=== PATIENT | female | born 1975 | race Caucasian/White ===

== ENCOUNTER → 2019-12-31 16:08 | Outpatient (BNVA) | payer OTHER, SELFPAY | PROVIDERS: Family Provider Nurse Practitioner; PCP Nurse Practitioner; Visit Provider Nurse Practitioner Women's Health | DX: E03.9 Hypothyroidism, unspecified (principal) | CPT/HCPCS: 84443 ==

== ENCOUNTER 2020-07-18 13:09 | Outpatient (CLI) | payer OTHER, SELFPAY ==
--- NOTE | 2020-07-18 13:30 | MM_ITS ---
WS: [id number] BILATERAL DIGITAL SCREENING MAMMOGRAM WITH CAD CLINICAL INFORMATION: screening HISTORY: Screening mammogram. No current complaints. COMPARISON: None. TECHNIQUE: Bilateral CC and MLO. FINDINGS: The breast are composed of extremely dense tissue, which can limit the detection of small underlying mass lesions. No suspicious focal mass, asymmetry, calcifications, or architectural distortion. No ev idence of malignancy. Vascular calcification. MM/[place] [id number] IMPRESSION: BI-RADS: 2-Benign FOLLOW UP: 1 Month Follow-up Recommend return to annual screening mammography.
== END 2020-07-18 13:10 | disposition home or self-care (01) ==
LOC: RADSHAW 13:12
PROVIDERS: PCP Nurse Practitioner; Visit Provider Nurse Practitioner Women's Health
DX: Z12.31 Encounter for screening mammogram for malignant neoplasm of breast (principal)
CPT/HCPCS: 77067

== ENCOUNTER → 2021-06-09 16:09 | Outpatient (BNVA) | payer OTHER, SELFPAY | PROVIDERS: PCP Registered Nurse; Visit Provider Nurse Practitioner Women's Health | DX: Z01.419 Encounter for gynecological examination (general) (routine) without abnormal findings (principal); N93.9 Abnormal uterine and vaginal bleeding, unspecified; E03.9 Hypothyroidism, unspecified; Z12.39 Encounter for other screening for malignant neoplasm of breast | CPT/HCPCS: 84443 ==

== ENCOUNTER 2021-08-07 15:10 | Outpatient (CLI) | payer OTHER, SELFPAY ==
--- NOTE | 2021-08-07 15:30 | MM_ITS ---
WS: [email or web address] SCREENING DIGITAL MAMMOGRAM WITH CAD HISTORY: Z12.39 - Encounter for other screening for malignant neoplasm. COMPARISON: 07/18/2020 Bilateral CC and MLO views submitted. Computer aided detection analyzed. Breast composition: The breasts are heterogeneously dense, which may obscure small masses. Small circ umscribed 5 mm nodule in the central LEFT breast seen only on the CC projection. This is superimposed over dense fibroglandular tissue otherwise. Not definitely visualized on the prior study. MM/[place] [id number] IMPRESSION: BI-RADS: 0-Incomplete: Need additional imaging evaluation FOLLOW UP: Need Additional Imaging LEFT breast: Spot compression views (CC and MLO). True ML. Ultrasound to follow if abnormality persists.
== END 2021-08-07 15:11 | disposition home or self-care (01) ==
LOC: RADSHAW 15:15
PROVIDERS: PCP Registered Nurse; Visit Provider Nurse Practitioner Women's Health
DX: Z12.31 Encounter for screening mammogram for malignant neoplasm of breast (principal)
CPT/HCPCS: 77067

== ENCOUNTER 2021-09-21 07:43 | Outpatient (CLI) | payer OTHER, SELFPAY ==
--- NOTE | 2021-09-21 07:47 | US_ITS ---
WS: [email or web address] Exam: US breast LT limited* [id number] Date/Time of Exam: 09/21/2021 8:28 AM Reason For Exam: ABNORMAL MAMMOGRAM Regional ultrasound of the 12:00 position of the left breast is performed. There are 2 small cysts at the 12:00 position. The largest cyst measures 5.9 mm at greatest diameter and the smaller cyst 5.5 m m. These cysts correspond to the abnormality identified on recent screening mammogram and compression spot views. No suspicious solid mass or nodule is noted in this region. Recommendations: Continue yearly screening mammography. US/US breast LT limited* [id number] IMPRESSION: 1. 2 subcentimeter cysts are seen at the 12:00 position in the left breast and correspond to the abnormality identified on recent screening mammogram and comp ression spot views of the left breast. No suspicious solid mass or nodule is de monstrated in this area with ultrasound. BI-RADS Category 2.
--- NOTE | 2021-09-21 08:00 | MM_ITS ---
WS: [email or web address] Exam: [place] [id number] Date/Time of Exam: 09/21/2021 8:02 AM Reason For Exam: R92.8 - Other abnormal and inconclusive findings on diagn... VIEWS: Spot compression views of the left breast are obtained in the craniocaudal and mediolateral pr ojections. A straight 90 degree lateral view of the left breast was also included in the series.. Comparison made with prior exam of 08/07/2021 which is a screening mammogram. Findings: Partially obscured 5 mm nodule seen at about the 12:30 position in the left breast persists on the co mpression spot images. There was no sign of suspicious calcification or architectural distortion. Th e left breast is heterogeneously dense MM/[place] [id number] Impression: BI-RADS: 0-Incomplete: Need additional imaging evaluation regional ultrasound r ecommended for further workup. FOLLOW-UP: Need Additional Imaging This mammogram was also analyzed by the Computer Aided Detection System R2 Imag e Composite Laminator.
== END 2021-09-21 07:44 | disposition home or self-care (01) ==
PROVIDERS: PCP Registered Nurse; Visit Provider Nurse Practitioner Women's Health
DX: R92.8 Other abnormal and inconclusive findings on diagnostic imaging of breast (principal); N63.25 Unspecified lump in the left breast, overlapping quadrants
CPT/HCPCS: 76642; 77065

== ENCOUNTER → 2021-10-16 11:35 | Outpatient (BNVA) | payer OTHER, SELFPAY | PROVIDERS: PCP Registered Nurse; Visit Provider Registered Nurse | DX: R21 Rash and other nonspecific skin eruption (principal) | CPT/HCPCS: 85025 ==

== ENCOUNTER → 2022-06-11 13:04 | Outpatient (BNVA) | payer SELFPAY | PROVIDERS: PCP Registered Nurse; Visit Provider Obstetrics & Gynecology | DX: E03.9 Hypothyroidism, unspecified (principal) | CPT/HCPCS: 84443 ==

== ENCOUNTER 2022-10-08 09:09 | Outpatient (CLI) | payer OTHER, SELFPAY ==
--- NOTE | 2022-10-08 09:18 | MM_ITS ---
WS: [email or web address] BILATERAL SCREENING DIGITAL TOMOSYNTHESIS MAMMOGRAM WITH CAD HISTORY: Screening exam. COMPARISON: 08/07/2021, 07/18/2020 Bilateral CC and MLO views with tomosynthesis and synthetic mammography submitted. Computer aided det ection analyzed. Breast composition: The breasts are heterogeneously dense, which may obscure small masses. No suspici ous masses, microcalcifications or architectural distortion. MM/[place] [id number] IMPRESSION: BI-RADS: 1-Negative FOLLOW UP: 1 Year Follow-up
== END 2022-10-08 09:10 | disposition home or self-care (01) ==
PROVIDERS: PCP Registered Nurse; Visit Provider Nurse Practitioner Women's Health
DX: Z12.31 Encounter for screening mammogram for malignant neoplasm of breast (principal)
CPT/HCPCS: 77063; 77067

== ENCOUNTER → 2023-09-21 15:30 | Outpatient (BNVA) | payer OTHER, SELFPAY | PROVIDERS: PCP Registered Nurse; Visit Provider Nurse Practitioner Women's Health | DX: Z12.4 Encounter for screening for malignant neoplasm of cervix (principal); E03.9 Hypothyroidism, unspecified; N91.1 Secondary amenorrhea | CPT/HCPCS: 82670; 83001; 84443; 87624 ==

== ENCOUNTER 2023-10-14 14:24 | Outpatient (CLI) | payer OTHER, SELFPAY ==
--- NOTE | 2023-10-14 14:26 | MM_ITS ---
WS: [email or web address] BILATERAL 3D TOMOSYNTHESIS DIGITAL SCREENING MAMMOGRAPHY WITH CAD CLINICAL INFORMATION: Z12.31 - Encounter for screening mammogram for malignant ... HISTORY: Screening mammogram. No current complaints. COMPARISON: 2021 TECHNIQUE: Bilateral CC and MLO views. FINDINGS: The breasts are composed of heterogeneous fibroglandular density tissue, which can limit the detectio n of small underlying mass lesions. No suspicious mass, asymmetry, calcifications, or architectural d istortion. No evidence of malignancy. A few incidental punctate calcifications. IMPRESSION: MM/[place] [id number] BI-RADS: 2-Benign FOLLOW UP: 1 Year Follow-up Recommend return to annual screening mammography.
== END 2023-10-14 14:25 | disposition home or self-care (01) ==
LOC: RAD 14:24
PROVIDERS: PCP Registered Nurse; Visit Provider Registered Nurse
DX: Z12.31 Encounter for screening mammogram for malignant neoplasm of breast (principal)
CPT/HCPCS: 77063; 77067

== ENCOUNTER → 2024-10-02 16:29 | Outpatient (BNVA) | payer OTHER, SELFPAY | PROVIDERS: PCP Registered Nurse; Visit Provider Nurse Practitioner Women's Health | DX: E03.9 Hypothyroidism, unspecified (principal) | CPT/HCPCS: 84443 ==

== ENCOUNTER 2024-10-19 07:53 | Outpatient (CLI) | payer OTHER, SELFPAY ==
--- NOTE | 2024-10-19 08:00 | MM_ITS ---
WS: [email or web address] BILATERAL SCREENING DIGITAL TOMOSYNTHESIS MAMMOGRAM WITH CAD HISTORY: Z12.31 - Encounter for screening mammogram for malignant ... COMPARISON: 10/14/2023, 10/08/2020 Bilateral CC and MLO views with tomosynthesis and synthetic mammography submitted. Computer aided det ection analyzed. Breast composition: The breasts are heterogeneously dense, which may obscure small masses. No suspici ous masses, microcalcifications or architectural distortion. MM/MM [place] tomosynthesis [id number] IMPRESSION: BI-RADS: 1 - Negative FOLLOW UP: 1 Year Follow-up
== END 2024-10-19 07:54 | disposition home or self-care (01) ==
LOC: RAD 07:54
PROVIDERS: PCP Registered Nurse; Visit Provider Nurse Practitioner Women's Health
DX: Z12.31 Encounter for screening mammogram for malignant neoplasm of breast (principal); R92.333 Mammographic heterogeneous density, bilateral breasts
CPT/HCPCS: 77063; 77067

== ENCOUNTER → 2025-03-08 09:23 | Outpatient (BNVA) | payer OTHER, SELFPAY | PROVIDERS: PCP Registered Nurse; Visit Provider Registered Nurse | DX: N20.0 Calculus of kidney (principal) | CPT/HCPCS: 81000 ==

== ENCOUNTER → 2025-10-17 16:16 | Outpatient (BNVA) | payer OTHER, SELFPAY | PROVIDERS: PCP Registered Nurse; Visit Provider Nurse Practitioner Women's Health | DX: E03.9 Hypothyroidism, unspecified (principal); Z78.0 Asymptomatic menopausal state | CPT/HCPCS: 82306; 82670; 84443 ==

== ENCOUNTER 2025-10-23 14:28 | Outpatient (CLI) | payer OTHER, SELFPAY ==
--- NOTE | 2025-10-23 14:30 | XR_ITS ---
WS: [email or web address] SCREENING DEXA SCAN [employer] CLINICAL INFORMATION: Z78.0 - Asymptomatic menopausal state COMPARISON: None. FINDINGS: The L1-L4 bone mineral density measures 1.236 g/cm2. This corresponds to a T score score of 0.5 and Z score of 0.6. Left femoral neck bone mineral density measures 0.931 g/cm2. This corresponds to a T score of -0.6 and Z score of -0.4. Right femoral neck bone mineral density measures 0.887 g/cm2. This corresponds to a T score -1.0of and Z score of -0.7. Mean femoral neck bone mineral density measures 0.909 g/cm2. This corresponds to a T score of -0.8 and Z score of -0.5. XR/XR DEXA axial skeleton* [id number] IMPRESSION: Normal bone mineralization lumbar spine. Normal bone mineralization femoral nec ks approaching osteopenia. Patient's FRAX calculated 10 year probability for major osteoporotic fracture i s 4.6% and osteoporotic hip fracture is 0.3%.
--- NOTE | 2025-10-23 15:00 | MM_ITS ---
WS: [email or web address] BILATERAL 3D TOMOSYNTHESIS DIGITAL SCREENING MAMMOGRAPHY WITH CAD CLINICAL INFORMATION: Z12.31 - Encounter for screening mammogram for malignant ... HISTORY: Screening mammogram. No current complaints. COMPARISON: 2023 TECHNIQUE: Bilateral CC and MLO views. FINDINGS: The breasts are composed of heterogeneous fibroglandular density tissue, which can limit the detection of small underlying mass lesions. No suspicious mass, asymmetry, calcifications, or architectural distortion. No evidence of malignancy. Vascular calcification. Incidental punctate calcification LEFT breast MM/MM [facility] tomosynthesis [id number] IMPRESSION: DENSITY: The breasts are heterogeneously dense, which may obscure small masses. BI-RADS: 2 - Benign FOLLOW UP: 1 Year Follow-up Recommend return to annual screening mammography.
== END 2025-10-23 14:29 | disposition home or self-care (01) ==
LOC: RAD 14:29
PROVIDERS: PCP Registered Nurse; Visit Provider Nurse Practitioner Women's Health
DX: Z12.31 Encounter for screening mammogram for malignant neoplasm of breast (principal); Z13.820 Encounter for screening for osteoporosis; Z78.0 Asymptomatic menopausal state; R92.333 Mammographic heterogeneous density, bilateral breasts; R92.323 Mammographic fibroglandular density, bilateral breasts; R92.1 Mammographic calcification found on diagnostic imaging of breast
CPT/HCPCS: 77063; 77067; 77080